=== PATIENT | female | born 1930 | race Caucasian/White ===

== ENCOUNTER 2016-12-09 14:28 | Emergency (ER) | payer MEDICARE, OTHER ==
[~2016-12-09] VITALS: Ht 167.6 cm; Wt 77.3 kg
[~2016-12-09 14:28] MED LIST: ASPIR-LOW81 MG PO; ASPIRIN 32325 MG/TAB PO; CALCIUM1 CAP PO; CARDIZEM CD 18180 MG PO; CHROMIUM PICOLI1 TAB PO; CRANBERRY FRUI475 MG PO; FERROUS SU325 MG/TAB PO; FLEXERIL 1010 MG/TAB PO; FOLIC ACID PO; FOLIC ACID0.4 MG PO; HCTZ PO; HYZAAR 25 MG-101 TAB PO; HYZAAR 50-12.1 UDTAB PO; INDERAL 20MG20 MG PO; IRON325 M1 PO; K-DUR20 MEQ PO; MACROBID 1100 MG/CAP PO; MOTRIN 400400 MG/TAB PO; MULTIPLE VITAMI1 CAP PO; MVI PO; NAFTIN TOP; NITROSTAT0.4 MG/TAB SL; NORCO 325 MG-51 TAB PO; OCUVITE1 TA1 PO; TEKTURNA PO; TYLENOL 325MG325 MG PO; VENASTAT300 MG PO; VITAMIN C500 MG PO; VITAMIN E 400 U4001 PO; ZOCOR 40MG40 MG PO; ZOCOR PO; [UNRECOGNIZED DRUG - CODE] PO
[2016-12-09 14:31] VITALS: TEMP 98.4
[2016-12-09] MEDS ORDERED: INDERAL 20MG20 MG PO (16:13)
[2016-12-09 16:33] LABS: BASO % 0.4 % (0.0-2.0); EOS # 0.2 (0.0-0.7); EOS % 3.3 % (0-4.0); GRAN # 3.6 (1.4-6.5); GRAN % 52.8 % (42.2-75.2); HEMATOCRIT 39.5 % (37.0-47.0); LYMPH # 2.3 (1.2-3.4); LYMPH % 33.3 % (20.0-51.0); MEAN CELL VOLUME 97 fl (80.0-100.0); MEAN CORPUSCULAR HEMOGLOBIN 32 pg (27.0-31.0); MEAN CORPUSCULAR HGB CONC 33 g/dl (33.0-37.0); MONO # 0.7 (0.1-0.6); MONO % 9.8 % (1.7-9.3); PLATELET COUNT 195 K/mm3 (130-400); RED BLOOD COUNT 4.07 M/mm3 (4.10-5.30); REDCELL DISTRIBUTION WIDTH-CV 12.5 % (11.5-14.5); WHITE BLOOD COUNT 6.8 K/mm3 (4.8-10.8)
[2016-12-09 16:47] LABS: ADJUSTED CALCIUM 9.4 mg/dL (8.4-10.2); ALANINE AMINOTRANSFERASE 35 U/L (9-52); ALBUMIN 4.1 gm/dL (3.5-5.0); ALKALINE PHOSPHATASE 60 U/L (50-136); ANION GAP 10 mmol/L (7-16); BILIRUBIN,TOTAL 0.9 mg/dL (0.0-1.0); BLOOD UREA NITROGEN 13 mg/dL (7-17); C-REACTIVE PROTEIN < 0.5 mg/dL (0.0-0.9); CALCIUM 9.5 mg/dL (8.4-10.2); CARBON DIOXIDE 26 mmol/L (22-30); CHLORIDE 98 mmol/L (98-107); CREATININE, serum 0.68 mg/dL (0.52-1.25); GLUCOSE 86 mg/dL (74-106); LIPASE 149 U/L (23-300); POTASSIUM 3.9 mmol/L (3.4-5.0); SODIUM 133 mmol/L (137-145); TOTAL PROTEIN 7.2 gm/dL (6.4-8.2)
[2016-12-09 16:55] LABS: B-TYPE NATRIURETIC PEPTIDE 353 pg/mL (0-450)
[2016-12-09 16:59] LABS: TROPONIN-I < 0.012 ng/mL (0.000-0.034)
[2016-12-09 17:08] LABS: PH 7 (5-8); SQUAMOUS EPITHELIAL 0-2 /hpf; URINE APPEARANCE Clear; URINE BACTERIA Rare /hpf; URINE BILIRUBIN Negative (NEGATIVE); URINE BLOOD Negative (NEGATIVE); URINE COLOR Straw; URINE GLUCOSE Negative (NEGATIVE); URINE KETONE Negative (NEGATIVE); URINE RBC 0-2 /hpf; URINE UROBILINOGEN Negative (NEGATIVE); URINE WBC 20-50 /hpf
[2016-12-09] MEDS ORDERED: AMOXICILLIN 8751 TAB PO (18:06)
[2016-12-09 18:16] VITALS: BP 159/98; PULSE 83
== END 2016-12-09 18:31 | disposition home or self-care (01) ==
LOC: COL.ER 14:28
PROVIDERS: Emergency Medicine
DX: N39.0 Urinary tract infection, site not specified (principal); B96.20 Unspecified Escherichia coli [E. coli] as the cause of diseases classified elsewhere; R07.9 Chest pain, unspecified; R00.1 Bradycardia, unspecified; R10.32 Left lower quadrant pain; I10 Essential (primary) hypertension; F03.90 Unspecified dementia, unspecified severity, without behavioral disturbance, psychotic disturbance, mood disturbance, and anxiety
CPT/HCPCS: Q9967